=== PATIENT | male | born 1950 | race Caucasian/White ===

== ENCOUNTER 2017-10-12 13:46 | Emergency (ER) | payer OTHER ==
[2017-10-12] MEDS: SOD CHLORIDE 0.9% 500 ML IV (13:47)
[2017-10-12 14:10] LABS: ADD MAN DIFF? NO
[2017-10-12 14:16] LABS: ABNORMAL IP MESSAGE 1; BASOPHILS % 0.3 % (0.0-2.0); EOSINOPHILS % 0.2 % (0.0-7.0); HEMATOCRIT 16.9 % (42.0-52.0); LYMPHOCYTES # 1.7 10^3/ul (0.8-2.9); LYMPHOCYTES % 12.2 % (15.0-51.0); MEAN CORPUSCULAR HEMOGLOBIN 30.9 pg (29.0-33.0); MEAN CORPUSCULAR VOLUME 96.6 fl (82.0-101.0); MEAN PLATELET VOLUME 11.3 fl (7.4-10.4); MONOCYTE # 0.8 10^3/ul (0.3-0.9); MONOCYTES % 5.6 % (0.0-11.0); NEUTROPHIL # 11.5 10^3/ul (1.6-7.5); NEUTROPHILS % 81.1 % (39.0-77.0); PLATELET COUNT 163 10^3/UL (140-415); RED BLOOD COUNT 1.75 10^6/ul (4.70-6.10); RED CELL DISTRIBUTION WIDTH 14.1 % (11.5-14.5)
[2017-10-12 14:16] LABS: WHITE BLOOD COUNT 14.2 10^3/ul (4.8-10.8)
[2017-10-12 14:34] LABS: ALANINE AMINOTRANSFERASE 25 IU/L (13-69); ALBUMIN 3.4 g/dl (3.3-4.9); ALBUMIN/GLOBULIN RATIO 1.25; ALKALINE PHOSPHATASE 48 IU/L (42-121); ANION GAP 12 (8-16); ASPARTATE AMINO TRANSFERASE 29 IU/L (15-46); BILIRUBIN,INDIRECT 0.1 mg/dl (0-1.1); BILIRUBIN,TOTAL 0.1 mg/dl (0.2-1.3); BLOOD UREA NITROGEN 41 mg/dl (7-20); CALCIUM 8.5 mg/dl (8.4-10.2); CARBON DIOXIDE 21 mmol/L (21-31); CHLORIDE 112 mmol/L (97-110); CREATININE 1.35 mg/dl (0.61-1.24); GLUCOSE 188 mg/dl (70-220); LIPASE 46 U/L (23-300); POTASSIUM 4.4 mmol/L (3.5-5.1); SODIUM 141 mmol/L (135-144); TOTAL PROTEIN 6.1 g/dl (6.1-8.1)
[2017-10-12 14:39] LABS: HEMOGLOBIN 5.4 g/dl (14.0-18.0); PATH REVIEW? YES
[2017-10-12 14:45] LABS: B-TYPE NATRIURETIC PEPTIDE 63 PG/ML (0-125); TROPONIN-I < 0.010 ng/ml (0.000-0.120)
[2017-10-12] MEDS: ASPIRIN 81 MG TAB PO (14:59)
[2017-10-12] MEDS: PANTOPRAZOLE IV 80 MG in SOD CHLORIDE 0.9% 100 ML IV (16:37)
[2017-10-12] MEDS: PANTOPRAZOLE IV 80 MG in SOD CHLORIDE 0.9% 100 ML IVPB (16:38)
[2017-10-12 17:32] LABS: IMMEDIATE SPIN CROSSMATCH 1 2
== END 2017-10-12 20:46 | disposition short-term general hospital (02) ==
LOC: E/R 13:46
DX: K29.01 Acute gastritis with bleeding (principal); R07.9 Chest pain, unspecified; R55 Syncope and collapse; D64.9 Anemia, unspecified; K92.1 Melena; E86.0 Dehydration; I10 Essential (primary) hypertension; E11.9 Type 2 diabetes mellitus without complications; Z79.4 Long term (current) use of insulin; Z79.82 Long term (current) use of aspirin
CPT/HCPCS: 36415; 36430; 71045; 80053; 83690; 83880; 84484; 85025; 86644; 86850; 86900; 86901; 86920; 93005; 96374; 96376; 99291-25